=== PATIENT | male | born 1985 | race Caucasian/White ===

== ENCOUNTER 2021-11-21 05:46 | Day surgery (SDC) | payer OTHER, SELFPAY ==
[2021-11-20 09:28] VITALS: BMI 47.5
[2021-11-21] VITALS (8 sets, daily range): BP systolic 134–179; BP diastolic 78–110; PULSE 90–110; RESP 16–21; TEMP 36.3–36.6; O2SAT 90–97
--- NOTE | 2021-11-21 06:42 | ANES.PREANE2 ---
Pre-Anesthetic Assessment Height/Weight: Height 1.83 m Weight 158.757 kg Temp Pulse Resp BP Pulse Ox 97.8 F 90 18 179/110 97 11/21/21 06:24 11/21/21 06:24 11/21/21 06:24 11/21/21 06:24 11/21/21 06:24 Preop Diagnosis: Desires permanent sterility. Difficult anatomy for vasectomy Operation Date: 11/21/21 07:00 Proposed Procedures p Vasectomy 22729/Z30.09(Not Applicable) - Chao Dominguez MD Familial anesthetic complications: None Was Beta Sharon taken within 24 hours: N/A Was Clonidine taken within 24 hours: N/A Last intake: Intake Last Liquid Date 11/20/21 Last Liquid Time 10:30 Last Solid Date 11/20/21 Last Solid Time 19:00 Social No alcohol and No tobacco Exam alert, oriented x 3, clear to auscultation bilaterally and regular rate & rhythm Airway Mallampati: Class III Dentition: full Comments: Comments: noyola CV/HEM Hypertension (Does not take his perscription, unable to tell me what it is. States his BP is fine at home) Metabolic Morbid Obesity Anesthetic Plan ASA status: 2 Anesthesia: Choice Risk of > 500 ml blood loss (7ml/kg in children): No Medications/Allergies Home Medications Medication Instructions Recorded Confirmed Last Taken Type citalopram 40 mg tablet (Celexa) 40 mg PO DAILY 11/15/21 11/21/21 11/20/21 History Allergies Allergy/AdvReac Type Severity Reaction Status Date / Time No Known Allergies Allergy Unverified 11/20/21 09:28 [facility] Anesthesia Family History Father Diabetes Hypertension Mother Healthy female adult Social History Smoking and tobacco status: never smoked Alcohol intake: current Alcohol intake frequency: holidays/special occasions only Adopted: No Lives independently: Yes Household members: spouse and children Marital status: Marital status details: for 18 years Number of children: 2 Number of grandchildren: 0 Current occupational status: employed History of recent travel: No Data Anesthesia Cardiac Studies: No Data to Display
--- NOTE | 2021-11-21 06:46 | W.PM.OPSUD ---
Surgery/Procedure H&P Update DATE OF PROCEDURE: November 21, 2021 DATE H&P PERFORMED: 11/15/21 H&P UPDATE INFORMATION: I have reviewed H&P completed within last 30 days, I have examined patient prior to procedure, No changes to prior documentation and [place] [facility] [place] indicated PREOP DIAGNOSIS: Desires permanent sterility. Difficult anatomy for vasectomy PLANNED PROCEDURE: Operation Date: 11/21/21 07:00 Proposed Procedures p Vasectomy 47117/Z30.09(Not Applicable) - Chao Dominguez MD
[2021-11-21] MEDS: sodium chloride 0.9% 1,000 ML 30 ML IV (06:48)
--- NOTE | 2021-11-21 06:54 | P.OP_ITS ---
Operative Report Date of procedure: November 21, 2021 Pre-op diagnosis: Desires permanent sterility. Difficult anatomy for vasectomy Post-op diagnosis: Desires permanent sterility. Difficult anatomy for vasectomy Post-op findings: Vasectomy, no scalpel technique Procedure done: Specimens removed/disposition: Bilateral vas deferens segments Pathology: Bilateral vas deferens segment Surgeon: Angelica Estimated blood loss: Minimal Urine output: Not measured Complications: None Findings: Normal-appearing vas deferens. Exposed through single midline incision Brief History: Mr. Lewis is a very pleasant 36-year-old white male who desires permanent surgical sterility. Attempted vasectomy by primary care was unsuccessful due to difficult localization of the vas. He was referred to me for vasectomy. My exam confirmed the previous findings by his primary care that the vas deferens was difficult based on its own characteristics as well as his body habitus. It was felt that vasectomy under anesthesia would provide safer and more tolerable outcome. Procedure: After routine preoperative evaluation examination and obtaining of informed consent he was taken to the operating suite on 11/21/2021 where general anesthesia was administered without difficulty after appropriate timeout was performed, SCDs confirmed to be functioning, preoperative antibiotics admini stered, beta-janice protocol confirmed. Prepped and draped in usual sterile fashion in supine position. Was examined under anesthesia and the anatomy was much more easily defined with him asleep and relaxed. For that reason it was decided to forego a midline incision which had been planned and just to a typical no scalpel technique vasectomy. The left vas deferens was was pushed up to the skin in the left hemiscrotum. Special sharpened hemostat was utilized to make a puncture incision over the vas. The vas was dissected from surrounding tissue and a open ring clamp was passed over the vasa and secured. The vas was further dissected and then a segment divided of approximately 1.5 cm in length. Needle cautery was utilized to cauterize the lumen of the testicular stump and the abdominal stump for an additional 1.5 to 2 cm length. The testicular stump was then buried in the adventitial sheath covering the cord and the abdominal stump was secured outside of that sheath to allow interposition of tissue between the 2 ends. Hemostasis was confirmed. A hemostat was applied to the suture that the 2 ends. Attention was then directed to the right vas deferens utilizing exactly the same technique as described above. At the completion of the right side the 2 hemostats were elevated to confirm vas deferens stump on each side. Hemostasis was visually confirmed. Both cords proximal to the surgical site were infiltrated with 1% lidocaine for postoperative analgesia. The 2 skin wounds were then closed with a 3-0 chromic horizontal mattress suture. Final inspectio n revealed good hemostasis, no internal swelling etc. He tolerated procedure well without complications and was awakened in the operating room and returned to cover him in stable condition. PLANS: 1. Anticipate discharge from outpatient surgery today 2. Reviewed again the importance of effective contraception until semen analysis preferably after 20 ejaculations shows no sperm. He is to use contraception until that is achieved. 3. Postoperative pain medication will be provided.
--- NOTE | 2021-11-21 08:29 | SUR.PHASEI ---
0757 PT TO PACU 5 WITH ORAL AIRWAY IN PLACE, GOOD RESP EFFORT NOTED IV TO RT AC #20 WITH NS 200ML UP AT KVO RATE, PT IS LARGE WITH LARGE SOFT ABDOMEN SCROTAL SUPPORT AND FLUFFS IN PLACE, NO BLEEDING, ID BRACELET TO LT WRIST , PT ID'D WITH 2 IDENTIFIERS, MONITOR ST TO SR WITH NO ECTOPY NOTED, BILAT SCDS ON , VSS 0800 ORAL AIRWAY REMOVED PT AWAKE ALERT ORIENTED X 3 PT VERBALIZED NO PAIN OR NAUSEA 0817 PT AWAKE ALERT ASKING TO SEE , PT APPROPRIATE AND ASKING FOR SOMETHING TO DRINK, REPORT TO OPS STAFF VENU RN, PT TO OPS ROOM 4 FAMILY AT BEDSIDE, PT BED TO LOW LEVEL AND LOCKED, HANDOFF AT BEDSIDE.
[2021-11-21] MEDS: oxyCODONE-APAP 5-325 mg Tablet 1 TAB PO (08:54)
--- NOTE | 2021-11-21 13:43 | ANE.PACU2 ---
Inpatient post-anesthesia follow up: Airway intact: Yes Vital signs: Temperature 97.8 F Pulse Rate 96 Respiratory Rate 18 Blood Pressure 146/103 Pulse Oximetry 93 Oxygen Delivery Me thod Room Air Oxygen Flow Rate 8 Fraction of Inspir ed Oxygen Hydration adequate: Yes Nausea and vomiting: Yes Pain level: 2 Mental status: Baseline
== END 2021-11-21 09:03 | disposition home or self-care (01) ==
PROVIDERS: PCP Family Medicine; Visit Provider Urology
PROC: (CPT 55250; principal; 2021-11-21 07:00)
DX: Z30.2 Encounter for sterilization (principal); I10 Essential (primary) hypertension; E66.01 Morbid (severe) obesity due to excess calories; Z68.42 Body mass index [BMI] 45.0-49.9, adult
CPT/HCPCS: 55250; 88302; J0330; J1100; J1885; J2250; J2370; J2405; J2704; J3010; J3490; J7030

== ENCOUNTER 2023-07-16 16:30 | Outpatient (CLI) | payer OTHER, SELFPAY | END 2023-07-16 16:31 | disposition home or self-care (01) | LOC: SLEEP 07-22 10:31 | PROVIDERS: PCP Family Medicine; Visit Provider Family Medicine | DX: G47.33 Obstructive sleep apnea (adult) (pediatric) (principal); R09.02 Hypoxemia; G47.10 Hypersomnia, unspecified | CPT/HCPCS: G0399 ==